=== PATIENT | female | born 1980 | race Two or more races ===

== ENCOUNTER 2018-10-19 13:35 | Emergency (ER) | payer MEDICAID ==
[~2018-10-19] VITALS: Ht 152.4 cm; Wt 62.1 kg
[2018-10-19] MEDS ORDERED: KETOROLAC TROMETH 30 MG/ML 1ML VIAL IV ONE (15:45)
[2018-10-19 16:12] LABS: Basophils # (auto) 0 uL; Basophils % (auto) 0.4 % (0.0-2.0); Eosinophils # (auto) 0.1 uL; Eosinophils % (auto) 0.7 % (0.0-7.0); Hematocrit 33.4 % (36.0-46.0); Hemoglobin 10.9 g/dL (12.2-16.2); Lymphocytes # (auto) 0.8 uL; Lymphocytes % (auto) 9.7 % (10.0-50.0); Mean Corpuscular Hemoglobin 28.2 pg (28.0-32.0); Mean Corpuscular Hgb Conc. 32.7 g/dL (32.0-36.0); Mean Corpuscular Volume 86.2 fL (80.0-100.0); Monocytes # (auto) 0.3 uL; Monocytes % (auto) 4.2 % (0.0-12.0); Neutrophils # (auto) 6.7 uL; Platelet Count (auto) 391 10^3/uL (140-450); Red Blood Cells 3.88 10^6/uL (4.0-5.20); Red Cell Distribution Width 14.5 % (11.8-14.3); White Blood Cell 7.9 10^3/uL (4.4-10.8)
[2018-10-19 16:23] LABS: Albumin 2.9 g/dL (3.4-5.0); BUN/Creatinine Ratio 25.9; Calcium 8.3 mg/dL (8.5-10.1); Potassium 3.7 mmol/L (3.5-5.1)
[2018-10-19 16:25] LABS: Bilirubin, Total 0.3 mg/dL (0.2-1.0); Total Protein 7.4 g/dL (6.4-8.2)
[2018-10-19 17:43] VITALS: BP 121/83
== END 2018-10-19 17:18 | disposition home or self-care (01) ==
LOC: EDUNIT# 13:35 → EDBD 13:35 → ER 13:44
DX: O9A.23 Injury, poisoning and certain other consequences of external causes complicating the puerperium (principal); S39.91XA Unspecified injury of abdomen, initial encounter; V49.49XA Driver injured in collision with other motor vehicles in traffic accident, initial encounter; Y93.89 Activity, other specified; Y99.8 Other external cause status; Y92.89 Other specified places as the place of occurrence of the external cause
CPT/HCPCS: 36415; 74176; 80053; 85025; 96374; 99284; J1885

== ENCOUNTER 2019-06-02 12:43 | Emergency (ER) | payer MEDICAID ==
[~2019-06-02] VITALS: Ht 152.4 cm; Wt 59.0 kg
[2019-06-02 13:13] VITALS: BP 135/50
[2019-06-02] MEDS ORDERED: TETANUS-DIPTH-ACEL PERTUSSIS 0.5ML SYRG IM ONE (15:15)
== END 2019-06-02 15:36 | disposition home or self-care (01) ==
LOC: ER 12:43
DX: S61.411A Laceration without foreign body of right hand, initial encounter (principal); W25.XXXA Contact with sharp glass, initial encounter; Y93.89 Activity, other specified; Y92.89 Other specified places as the place of occurrence of the external cause; Y99.8 Other external cause status
CPT/HCPCS: 12002; 90471; 90715

== ENCOUNTER 2025-02-11 23:04 | Inpatient (IN) | payer MEDICAID ==
[~2025-02-11] VITALS: Ht 149.9 cm; Wt 56.8 kg
[2025-02-11] MEDS: SODIUM CHLORIDE 0.9% 1,000 ML IV ONE (23:15)
[2025-02-11 23:30] VITALS: PULSE 61; RESP 10; O2SAT 98
--- NOTE | 2025-02-11 23:31 | ED.PDOC ---
History of Present Illness HPI Comments 44-year-old [place]-speaking female is brought in by ambulance from private residence status post witnessed syncope event. Per EMS report, daughter called after patient had a sudden syncopal event, while in the seated position, putting on shoes. No head or additional injuries reported. Upon arrival on scene, as noted on patient already being put N/A reclined position with a pillow beneath her head. Daughter stated on patient working the entire day, today, and complaining of chest pain at around 4:00 p.m., this evening. Vitals were noted to have been stable within normal limits. Initial blood glucose of 96. Patient was given 4 mg of Zofran IV EN route seeing nausea symptom. At time of assessment, patient endorses on feeling thirsty and having 8/10, left-sided chest wall pressure. Reports having similar episode of chest pain without syncope 2 weeks ago. Patient denies having any significant medical history. She denies having any is breath, palpitations, nausea, vomiting, or further associated symptoms. Chief Complaint: Chest Pain Time Seen by MD: 23:20 Primary Care Provider: VIKI MASSEY Reviewed Notes: Nurses Notes, Business Support Manager Notes, Medications, Allergies Allergies: Coded Allergies: NO KNOWN ALLERGIES (Unverified , 04/11/16) Information Source: Patient, Emergency Med Personnel Mode of Arrival: EMS Severity: Moderate Timing: Hours Duration: Since onset Prehospital treatment: 12 Lead EKG, Radiologist Diagnostic, Treatment (IV Zofran) Review of Systems: REVIEW OF SYSTEMS: General: No fever, no chills, or fatigue HEENT: No sore throat, no earache, no congestion, no neck pain. Cardiac: Syncope, chest pain. No palpitations. Lungs: No shortness of breath, no cough. GI: No nausea, no vomiting, no diarrhea, no constipation, no abdominal pain : No dysuria, frequency, or urgency. No hematuria. Musculoskeletal: No joint pain , no joint swelling, no extremity edema. Skin: No rash, no itching. Neuro: No headache, no dizziness, no weakness Vital Signs Vital Signs Date Time Temp Pulse Resp B/P (MAP) Pulse Ox O2 Delivery O2 Flow Rate FiO2 02/12/25 00:18 77 21 109/62 02/11/25 23:50 97.8 16 97.8 02/11/25 23:30 Room Air* 0 21 Physical Exam PHYSICAL EXAM: General: Awake, alert and oriented. No acute distress. Skin: Skin in warm, dry and intact. Appropriate color for ethnicity. HEENT: The head is normocephalic and atraumatic. Conjunctivae are clear without exudates or hemorrhage. Sclera is non-icteric. EOM are intact. No signs of nystagmus. Eyelids are normal in appearance without swelling or lesions. Oral mucosa is pink and moist Neck: The neck is supple with normal range of motion. No JVD. Cardiac: Left chest wall tenderness that is reproducible upon palpation. Heart rate and rhythm are normal. No murmurs, gallops, or rubs are auscultated. Respiratory: No signs of respiratory distress. Lung sounds are clear in all lobes bilaterally without rales, rhonchi, or wheezes. Abdominal: Abdomen is soft, non-tender without distention, guarding or rigidity. Bowel sounds are present and normoactive in all four quadrants. Extremities: Upper and lower extremities are atraumatic in appearance without deformity or edema. Neurological: The patient is awake, alert and oriented to person, place, and time with normal speech. Speech is clear. There is no facial asymmetry. Psychiatric: Appropriate mood and affect. Good judgement and insight. Past Medical History PAST MEDICAL HISTORY: Denies Surgical History: SENIOR PRODUCT MANAGER History: No Pertinent SENIOR PRODUCT MANAGER History Family History Family History: No family hx of DM, No family hx of HTN Social History Smoker: Non-Smoker Alcohol: Rarely Drugs: Denies Drug Use Lives In: Home Was a procedure done? Was a procedure done?: No EKG EKG : Pulse Rate (adult): 67 [place]: Normal Cardiac Rhythm: NSR Block: None Hypertrophy: None ST: Normal Comments No STEMI Differential Dx Considerations may include: Differential diagnoses considered include but are not limited to cardiac structural disease, arrhythmia, acute coronary syndrome, orthostasis, pulmonary embolism, dissection, seizure, basilar stroke, acute ischemic coronary syndrome, aortic dissection, cardiac tamponade, mediastinitis, pulmonary embolus, pneumothorax, tension pneumothorax, esophageal rupture, coronary artery vasospasm, myocarditis, pericarditis, pneumonia, pulmonary edema, esophageal tear, pancreatitis, aortic stenosis, dilated cardiomyopathy, hypertrophic cardiomyopathy, mitral valve prolapse, malignancy, pleuritis, pneumomediastinum, primary pulmonary hypertension, cholecystitis, esophageal spasm, esophagus, gastritis, GERD, peptic ulcer disease, costochondritis, fibromyalgia, rib fracture, herpes zoster, radicular syndromes, thoracic outlet syndrome, somatization. X-Ray, Labs, Meds, VS Vital Signs Date Time Temp Pulse Resp B/P (MAP) Pulse Ox O2 Delivery O2 Flow Rate FiO2 02/12/25 00:18 77 21 109/62 02/11/25 23:54 55 02/11/25 23:50 97.8 77 98 143/82 (102) 16 97.8 02/11/25 23:48 70 14 107/52 02/11/25 23:31 67 02/11/25 23:30 61 10 98 Room Air* 0 21 02/11/25 23:17 98.6 64 18 119/71 (87) 98 98.6 02/11/25 23:10 67 Lab Test 02/12/25 00:23 02/11/25 23:20 02/11/25 03:05 Range/Units Magnesium Level 1.8 1.6-2.6 mg/dL Total Bilirubin 0.5 0.2-1.0 mg/dL Direct Bilirubin 0.2 <0.3 mg/dL Aspartate Amino Transferase (AST) 13 13-40 U/L Alanine Aminotransferase (ALT) 12 7-40 U/L Alkaline Phosphatase 46 46-116 U/L Troponin I High Sensitivity < 3 L < 3 L </=34 ng/L Total Protein 5.7 5.7-8.2 g/dL Albumin 3.7 3.2-4.8 g/dL Thyroid Stimulating Hormone (TSH) 2.97 0.55-4.78 uIU/mL Beta HCG, Quantitative 0.7 L 1.5-4.2 mIU/mL White Blood Count 5.4 4.4-10.8 10^3/uL Red Blood Count 3.89 L 4.0-5.20 10^6/uL Hemoglobin 11.5 L 12.2-16.2 g/dL Hematocrit 33.2 L 36.0-46.0 % Mean Corpuscular Volume 85.3 80.0-100.0 fL Mean Corpuscular Hemoglobin 29.5 28.0-32.0 pg Mean Corpuscular Hemoglobin Concent 34.5 32.0-36.0 g/dL Red Cell Distribution Width 13.5 11.8-14.3 % Platelet Count 248 140-450 10^3/uL Mean Platelet Volume 7.6 6.9-10.8 fL Neutrophils (%) (Auto) 70.5 37.0-80.0 % Lymphocytes (%) (Auto) 21.3 10.0-50.0 % Monocytes (%) (Auto) 7.1 0.0-12.0 % Eosinophils (%) (Auto) 0.4 0.0-7.0 % Basophils (%) (Auto) 0.7 0.0-2.0 % Neutrophils # (Auto) 3.8 1.6-8.6 10 ^3/uL Lymphocytes # (Auto) 1.2 0.4-5.4 10 ^3/uL Monocytes # (Auto) 0.4 0-1.3 10 ^3/uL Eosinophils # (Auto) 0 0-0.8 10 ^3/uL Basophils # (Auto) 0 0-0.2 10 ^3/uL Nucleated Red Blood Cells 0.0 % Sodium Level 142 136-145 mmol/L Potassium Level 3.1 L 3.5-5.1 mmol/L Chloride Level 111 H 98-107 mmol/L Carbon Dioxide Level 21 20-31 mmol/L Anion Gap 10 5-15 Blood Urea Nitrogen < 5 L 9-23 mg/dL Creatinine 0.54 L 0.550-1.02 mg/dL Glomerular Filtration Rate Calc 118 >90 mL/min BUN/Creatinine Ratio 9.3 L 10.0-20.0 Serum Glucose 97 74-106 mg/dL Calcium Level 8.7 8.7-10.4 mg/dL B-Type Natriuretic Peptide 54.68 0-100 pg/mL Urine Test Negative Negative Urine Opiates Screen Neg NEGATIVE Urine Fentanyl Screen Neg NEGATIVE Urine Barbiturates Screen Neg NEGATIVE Urine Phencyclidine Screen Neg NEGATIVE Urine Amphetamines Screen Neg NEGATIVE Urine Benzodiazepines Screen Neg NEGATIVE Urine Cocaine Screen Neg NEGATIVE Urine Cannabinoids Screen Neg NEGATIVE Current Medications Medications (Trade) Dose Ordered Sig/Giles Route Start Time Stop Time Status Last Admin Sodium Chloride 1,000 ml @ 1,000 mls/hr Q1H ONCE IV 02/11/25 23:15 02/12/25 00:14 DC 02/11/25 23:15 Aspirin 324 mg ONCE ONCE PO 02/11/25 23:30 02/11/25 23:31 DC 02/11/25 23:49 Morphine Sulfate 2 mg ONCE ONCE IV 02/11/25 23:30 02/11/25 23:31 DC 02/11/25 23:48 Ondansetron HCl (Zofran) 4 mg ONCE ONCE IV 02/11/25 23:30 02/11/25 23:31 DC 02/11/25 23:49 Time of 1ST Reevaluation: 23:50 Reevaluation 1ST: Unchanged Patient Education/Counseling: Need For Follow Up Family Education/Counseling: No Family Present SEPSIS Sepsis Screen Physician Orders Electrocardigram (02/11/25 23:11) Radiologist Diagnostic (02/11/25 ) Orthostatic Vital Signs (02/11/25 ) Saline Lock (02/11/25 23:11) Fall Precautions Initiated (02/11/25 23:11) Electrocardigram (02/12/25 00:11) Electrocardigram (02/12/25 02:11) Urinalysis (02/11/25 23:17) Chest Xray 1 View (02/12/25 00:21) Vital Signs Date Time Temp Pulse Resp B/P (MAP) Pulse Ox O2 Delivery O2 Flow Rate FiO2 02/12/25 00:18 77 21 109/62 02/11/25 23:54 55 02/11/25 23:50 97.8 77 98 143/82 (102) 16 97.8 02/11/25 23:48 70 14 107/52 02/11/25 23:31 67 02/11/25 23:30 61 10 98 Room Air* 0 21 02/11/25 23:17 98.6 64 18 119/71 (87) 98 98.6 02/11/25 23:10 67 Laboratory Tests Test 02/11/25 23:20 White Blood Count 5.4 10^3/uL (4.4-10.8) Medications Medications Dose Ordered Sig/Giles Route Start Time Stop Time Status Last Admin Dose Admin Aspirin 324 mg ONCE ONCE PO 02/11/25 23:30 02/11/25 23:31 DC 02/11/25 23:49 Morphine Sulfate 2 mg ONCE ONCE IV 02/11/25 23:30 02/11/25 23:31 DC 02/11/25 23:48 Ondansetron HCl 4 mg ONCE ONCE IV 02/11/25 23:30 02/11/25 23:31 DC 02/11/25 23:49 Sodium Chloride 1,000 ml @ 1,000 mls/hr Q1H ONCE IV 02/11/25 23:15 02/12/25 00:14 DC 02/11/25 23:15 Departure 1 Departure Time of Disposition: 00:52 Impression: Primary Impression: Syncope Additional Impression: Chest pain Disposition: ADMITTED INPATIENT Condition: Stable Comments 44-year-old female with syncopal episode and chest pain Patient admitted to hospitalist service for further treatment, evaluation and monitoring. Extensive evaluation was performed in attempt to identify or rule out: (See differential diagnosis section) The following tests were ordered, and results were reviewed by me and discussed with patient: (See diagnostic results section) The following test were independently interpreted by me: EKG I reviewed and agreed with the following test results read by other providers: Chest x-ray I reviewed the following notes from the pt's past medical encounters: April, December 19, 2018, June 022018 encounters for gastritis, abdominal pain, laceration right hand, respectively Additional information was gathered from interviewing the following independent historians: EMS personnel Discussion of management or test interpretation with external physician/other qualified health care aid: N/A Decision regarding hospitalization or escalation of hospital level of care: Risk and benefits of admission for further treatment of patient's condition was considered. Due to patient's current clinical condition, high risk of decline and poor outcome if discharged and need for further inpatient management and monitoring, patient will be admitted to the hospital. Drug therapy requiring intensive monitoring for toxicity: N/A Parenteral controlled substances: IV morphine Decision regarding elective major surgery with identified patient or procedure risk factors: N/A Decision regarding emergency major surgery: N/A Decision not to resuscitate or to de-escalate care because of poor prognosis: N/A Diagnosis or treatment significantly limited by social determinants of health: N/A Critical Care Note Critical Care Time?: No Stability Stability form required: No Heart Score Heart Score: Heart Score Response (Comments) Value History Moderate Suspicious 1 EKG Normal 0 Age <45 0 Risk Factors No known risk factors 0 Troponin Normal limit 0 Total 1 I personally scribed for MINTAH,CHAILLE A MD ([email or web address]) on 02/11/25 at 23:31. Electronically submitted by Brayden Conrad ([email or web address]). CLAUDY MEHTA MD Feb 11, 2025 23:31
[2025-02-11 23:33] LABS: Hematocrit 33.2 % (36.0-46.0); Hemoglobin 11.5 g/dL (12.2-16.2); Mean Corpuscular Hemoglobin 29.5 pg (28.0-32.0); Mean Corpuscular Volume 85.3 fL (80.0-100.0); Nucleated Red Blood Cells % 0.0 %
[2025-02-11 23:45] LABS: Sodium 142 mmol/L (136-145)
[2025-02-11 23:46] LABS: Anion Gap 10 (5-15); Carbon Dioxide 21 mmol/L (20-31)
[2025-02-11] MEDS: MORPHINE SULFATE INJ 2 MG/ml SYRG IV ONE (23:48)
[2025-02-11] MEDS: ONDANSETRON HCL 4 MG/2 ML VIAL IV ONE (23:49)
[2025-02-11 23:51] LABS: Glucose 97 mg/dL (74-106)
[2025-02-12 00:03] LABS: BUN/Creatinine Ratio 9.3 (10.0-20.0); Blood Urea Nitrogen < 5 mg/dL (9-23); Calcium 8.7 mg/dL (8.7-10.4); Chloride 111 mmol/L (98-107); Potassium 3.1 mmol/L (3.5-5.1)
--- NOTE | 2025-02-12 00:59 | DVH ---
CHEST RADIOGRAPH Indication: CP/ syncope Technique: Single frontal view of the chest was obtained COMPARISON: None FINDINGS: Lines and Tubes: None Lungs: Clear Pleura: No effusion. No pneumothorax. Cardiomediastinal contours: Unremarkable Bones: Unremarkable IMPRESSION: 1. No acute disease.
--- NOTE | 2025-02-12 01:41 | DVHHP2 ---
History of Present Illness History of Present Illness Patient is 44 years old female with no significant past medical history was brought in by EMS after status post witnessed syncope. As per patient she was sitting on a chair to put on her shoes and she suddenly passed out at home. Before syncope patient had some nausea and pressure-like chest pain. As per patient before she passed out she was feeling nausea, dizziness and pressure- like chest pain, in the left side, sudden onset, 8/10, intermittent, no aggravating or relieving factor. Chest pain was associated with shortness of breaths. Per EMS record at the scene patient's blood sugar was 96, patient's vitals were stable. Patient reported she had similar dizziness 2 weeks before but did not pass out. Patient denied any fever, diarrhea, vomiting, dysuria, acute joint redness or swelling, change in vision. Initial lab workup is negative for troponin I, BNP within normal limit, potassium 3.1. chest x-ray no acute cardiopulmonary abnormality noted. EKG sinus bradycardia. Past Medical History None Past Surgical History x3, umbilical hernia repair Family History Mom has hypertension, diabetes mellitus Past Social History Denies smoking/alcoholism/drug abuse, lives with 3 kids Review of Systems Review of Systems Allergy- NKDA Patient was seen today at the bedside. Cardiovascular- deny acute chest pain or cough or palpitation Respiratory denies cough or short of breath or wheezing Gastrointestinal- denies any rectal bleeding, nausea or vomiting Musculoskeletal-denies acute joint swelling or tenderness or redness Neurological- denies acute dysarthria, dysphagia, change in vision Psychiatry- denies depression or SI or HI Skin- denies acute rash or purpura Allergies: Coded Allergies: NO KNOWN ALLERGIES (Unverified , 04/11/16) Medications Current Medications Medications Dose Ordered Sig/Giles Route Start Time Stop Time Status Last Admin Dose Admin Sodium Chloride 1,000 ml @ 120 mls/hr Q8H20M IV 02/12/25 01:45 Exam Vital Signs Vital Signs Date Time Temp Pulse Resp B/P (MAP) Pulse Ox O2 Delivery O2 Flow Rate FiO2 02/12/25 00:18 77 21 109/62 02/11/25 23:17 98.6 98 98.6 Exam General examination- awake, alert, oriented HEENT- [place], no acute nasal discharge Cardiovascular- chest wall tenderness positive++, S1-S2 audible, rate and rhythm regular, no murmur Respiratory- CTAB, no wheeze or rhonchi Gastrointestinal-nontender, bowel sound+. Nondistended Musculoskeletal-no acute joint swelling or tenderness or redness Lower extremity- no leg edema Neurological- cranial nerves intact, no acute dysarthria or dysphagia Psychiatry- denies depression or SI or HI Skin- no acute rash or purpura Labs/Xrays Labs Test 02/12/25 00:23 02/11/25 23:20 Range/Units Troponin I High Sensitivity < 3 L </=34 ng/L White Blood Count 5.4 4.4-10.8 10^3/uL Red Blood Count 3.89 L 4.0-5.20 10^6/uL Hemoglobin 11.5 L 12.2-16.2 g/dL Hematocrit 33.2 L 36.0-46.0 % Mean Corpuscular Volume 85.3 80.0-100.0 fL Mean Corpuscular Hemoglobin 29.5 28.0-32.0 pg Mean Corpuscular Hemoglobin Concent 34.5 32.0-36.0 g/dL Red Cell Distribution Width 13.5 11.8-14.3 % Platelet Count 248 140-450 10^3/uL Mean Platelet Volume 7.6 6.9-10.8 fL Neutrophils (%) (Auto) 70.5 37.0-80.0 % Lymphocytes (%) (Auto) 21.3 10.0-50.0 % Monocytes (%) (Auto) 7.1 0.0-12.0 % Eosinophils (%) (Auto) 0.4 0.0-7.0 % Basophils (%) (Auto) 0.7 0.0-2.0 % Neutrophils # (Auto) 3.8 1.6-8.6 10 ^3/uL Lymphocytes # (Auto) 1.2 0.4-5.4 10 ^3/uL Monocytes # (Auto) 0.4 0-1.3 10 ^3/uL Eosinophils # (Auto) 0 0-0.8 10 ^3/uL Basophils # (Auto) 0 0-0.2 10 ^3/uL Nucleated Red Blood Cells 0.0 % Sodium Level 142 136-145 mmol/L Potassium Level 3.1 L 3.5-5.1 mmol/L Chloride Level 111 H 98-107 mmol/L Carbon Dioxide Level 21 20-31 mmol/L Anion Gap 10 5-15 Blood Urea Nitrogen < 5 L 9-23 mg/dL Creatinine 0.54 L 0.550-1.02 mg/dL Glomerular Filtration Rate Calc 118 >90 mL/min BUN/Creatinine Ratio 9.3 L 10.0-20.0 Serum Glucose 97 74-106 mg/dL Calcium Level 8.7 8.7-10.4 mg/dL B-Type Natriuretic Peptide 54.68 0-100 pg/mL SEPSIS Sepsis Screen Date sepsis recognized/suspect: Feb 11, 2025 Time Sepsis recognized/suspect: 2309 Recent Procedure: No On Antibiotic Therapy: No Respiratory Rate >20: No Heart Rate >90: No Temp<36 C (96.8 F) or >38.3 C: No SBP <90 or MAP <65 mmHG: No New Acute Mental Status Change: No Is the patient on CPAP, BIPAP,: No Physician Orders Electrocardigram (02/11/25 23:11) [place] (02/11/25 ) Orthostatic Vital Signs (02/11/25 ) Saline Lock (02/11/25 23:11) Fall Precautions Initiated (02/11/25 23:11) Electrocardigram (02/12/25 00:11) Electrocardigram (02/12/25 02:11) Troponin-I Hs (02/12/25 02:11) Urinalysis (02/11/25 23:17) Test, Urine (02/11/25 23:17) Chest Xray 1 View (02/12/25 00:21) Admit (02/12/25 01:34) Code Status (02/12/25 01:34) Sodium Chloride 0.9% (02/12/25 01:45) Comprehensive Metabolic Panel (02/13/25 04:00) Echo 2d Mode Cardiac Dop (02/12/25 01:34) Carotid Duplx W Color Dop (02/12/25 01:34) Notify Of Changes From Base (02/12/25 01:34) Addictions Counselor For 24 Hours (02/12/25 01:34) Thyroid Stimulating Hormone (02/12/25 01:36) Magnesium (02/12/25 01:36) Orthostatic Vital Signs (02/12/25 01:36) Hepatic Panel (02/12/25 01:37) Vital Signs Date Time Temp Pulse Resp B/P (MAP) Pulse Ox O2 Delivery O2 Flow Rate FiO2 02/12/25 00:18 77 21 109/62 02/11/25 23:54 55 02/11/25 23:48 70 14 107/52 02/11/25 23:31 67 02/11/25 23:17 98.6 64 18 119/71 (87) 98 98.6 02/11/25 23:10 67 Laboratory Tests Test 02/11/25 23:20 White Blood Count 5.4 10^3/uL (4.4-10.8) Medications Medications Dose Ordered Sig/Giles Route Start Time Stop Time Status Last Admin Dose Admin Aspirin 324 mg ONCE ONCE PO 02/11/25 23:30 02/11/25 23:31 DC 02/11/25 23:49 324 MG Morphine Sulfate 2 mg ONCE ONCE IV 02/11/25 23:30 02/11/25 23:31 DC 02/11/25 23:48 2 MG Ondansetron HCl 4 mg ONCE ONCE IV 02/11/25 23:30 02/11/25 23:31 DC 02/11/25 23:49 4 MG Sodium Chloride 1,000 ml @ 1,000 mls/hr Q1H ONCE IV 02/11/25 23:15 02/12/25 00:14 DC 02/11/25 23:15 1,000 MLS/HR Assessment/Plan Assessment/Plan Assessment and plan #Syncope, rule out cardiac arrhythmia/orthostatic hypotension/BPPV/dehydration -EKG sinus bradycardia -troponin I, BNP within normal limit -pending echo 2D -pending carotid Doppler -Ordered orthostatic vitals -pending CT head without contrast -continue current conservative management # acute chest pain, likely acute costochondritis, rule out acute coronary syndrome -troponin I within normal limit -EKG sinus bradycardia -pending echo 2D -Tylenol PRN Diet- Regular diet PCP-Breanna Young Goals of care, Code status ; discussed with >15 minutes PUD prophylaxis: Pantoprazole DVT prophylaxis: Lovenox Plan discussed with Dr. Sibley , nursing staff, Total time spent on patient evaluation, chart review, assessment and plan, discussion discussion >35 minutes Plan discussed with: Patient, Other My Orders Orders - BAIRON FOURNIER RESIDENT Procedure Category Date Status Time Admit ADMIT 02/12/25 Transmitted 01:34 Code Status CODE 02/12/25 Transmitted 01:34 Sodium Chloride 0.9% PHA 02/12/25 In Process 01:45 Comprehensive LAB 02/13/25 Verified Metabolic Panel 04:00 Echo 2d Mode Cardiac US 02/12/25 Logged DOP 01:34 Carotid Duplx W Color US 02/12/25 Logged DOP 01:34 Notify Of Changes JERE 02/12/25 In Process From Base 01:34 Addictions Counselor For JERE 02/12/25 In Process 24 Hours 01:34 Thyroid Stimulating LAB 02/12/25 Logged Hormone 01:36 Magnesium LAB 02/12/25 Logged 01:36 Orthostatic Vital ORDERS 02/12/25 Transmitted Signs 01:36 Hepatic Panel LAB 02/12/25 Logged 01:37 Date of Service: Feb 12, 2025 Billing Provider: BELEN SIBLEY MD Common Visit Codes: 55579-PBHNUVS INP/OBS CARE (HIGH) Secondary Visit Codes: 78565-[id number] CARE PLAN 30 MINUTES BAIRON FOURNIER RESIDENT Feb 12, 2025 01:41
[2025-02-12] MEDS: SODIUM CHLORIDE 0.9% 1,000 ML IV SCH (01:45)
[2025-02-12 02:10] LABS: Alanine Aminotransferase 12.0 U/L (7-40); Albumin 3.7 g/dL (3.2-4.8); Bilirubin, Direct 0.2 mg/dL (<0.3); Bilirubin, Total 0.5 mg/dL (0.2-1.0); Magnesium 1.8 mg/dL (1.6-2.6)
[2025-02-12 02:21] LABS: Alkaline Phosphatase 46.0 U/L (46-116); Total Protein 5.7 g/dL (5.7-8.2)
[2025-02-12] MEDS: ACETAMINOPHEN 325 MG TAB PO ONE (02:45)
[2025-02-12] MEDS ORDERED: ACETAMINOPHEN 650 mg PER 20.3 mL UD PO ONE (02:45)
[2025-02-12] MEDS: POTASSIUM EFFERVESENT TAB 25 MEQ GT ONE (02:45)
[2025-02-12] MEDS: SODIUM CHLORIDE 0.9% 1,000 ML IV ONE (02:58)
[2025-02-12 03:51] LABS: Opiate Scree,Urine Neg (NEGATIVE)
[2025-02-12 03:55] LABS: Amphetamine Screen, Urine Neg (NEGATIVE); Barbiturate Scree,Urine Neg (NEGATIVE); Benzodiazephine Screen, Urine Neg (NEGATIVE); Cannabinoid Screen, Urine Neg (NEGATIVE); Cocaine Screen, Urine Neg (NEGATIVE); Phencyclidine Screen, Urine Neg (NEGATIVE)
[2025-02-12] MEDS ORDERED: NITROGLYCERIN 0.4 MG SL TAB SL PRN (06:45)
[2025-02-12] MEDS: MORPHINE SULFATE INJ 2 MG/ml SYRG ONE (07:12)
[2025-02-12 07:40] VITALS: PULSE 92; RESP 12; O2SAT 95
--- NOTE | 2025-02-12 08:33 | DVH ---
CLINICAL INFORMATION: Syncope. TECHNIQUE: Axial imaging was obtained through the brain without contrast. Coronal and sagittal reform atted images were obtained, reviewed, and stored. Images were reviewed in brain and bone windows. Al l CT scans at this medical facility are performed using dose modulation techniques as appropriate to a performed exam including the following: Automated exposure control was utilized; adjustment of the MA and/or KV according to patient size; and use of iterative reconstruction technique. CTDIvol = 53.1 9 mGy DLP = 941.96 mGy-cm COMPARISON: None FINDINGS: There is no acute intracranial hemorrhage. No mass effect or midline shift. The ventricles and sulci are within normal limits in size for age. Basal cisterns are patent. The calvarium is unre markable. Paranasal sinuses and mastoid air cells are clear. IMPRESSION: No CT evidence of acute intracranial abnormality.
--- NOTE | 2025-02-12 08:49 | ECG ---
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
--- NOTE | 2025-02-12 08:49 | ECG ---
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
--- NOTE | 2025-02-12 08:50 | ECG ---
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
--- NOTE | 2025-02-12 09:14 | DVH ---
Carotid Duplex Clinical History: SYNCOPE Comparison: None Technique: Duplex Doppler evaluation of the extracranial carotid and vertebral arteries including color Doppler and spectral/pulsed waveform analysis was performed. Findings: RIGHT SIDE: The peak systolic velocities are 66 cm/s in the CCA, 97 cm/s in the ICA. The ICA/CCA ratio is 1.5. The external carotid artery is patent with peak systolic velocity of 71 cm/s proximally. There is appropriate antegrade flow in the right vertebral artery. LEFT SIDE: The peak systolic velocities are 89 cm/s in the CCA, 111 cm/s in the ICA. The ICA/CCA ratio is 1.2. The external carotid artery is patent with peak systolic velocity of 68 cm/s proximally. There is appropriate antegrade flow in the left vertebral artery. IMPRESSION: No hemodynamically significant stenosis noted in the right carotid system. No hemodynamically significant stenosis noted in the left carotid system. Reference: Radiology 2003; 229:340-346 Normal ICA PSV is <125 cm/sec and no plaque or intimal thickening is visible sonographically addition al criteria include ICA/CCA PSV ratio <2.0 and ICA EDV <40 cm/sec <50% ICA stenosis ICA PSV is <125 cm/sec and plaque or intimal thickening is visible sonographically additional criteria include ICA/CCA PSV ratio <2.0 and ICA EDV <40 cm/sec 50-69% ICA stenosis ICA PSV is 125-230 cm/sec and plaque is visible sonographically additional criter ia include ICA/CCA PSV ratio of 2.0-4.0 and ICA EDV of 40-100 cm/sec 70% ICA stenosis but less than near occlusion ICA PSV is >230 cm/sec and visible plaque and luminal narrowing are seen at atkins-scale and color Doppler ultrasound (the higher the Doppler parameters lie above the threshold of 230 cm/sec, the greater the likelihood of severe disease) additional criteria include ICA/CCA PSV ratio >4 and ICA EDV >100 cm/sec
[2025-02-12 10:07] LABS: Urine Protein, UAD Negative (Negative)
[2025-02-12 14:48] VITALS: BP 106/67; PULSE 59; RESP 16; TEMP 98.4; O2SAT 98
[2025-02-12] MEDS: MORPHINE SULFATE INJ 2 MG/ml SYRG IV PRN ×2 (17:32→22:35)
[2025-02-12 20:00] VITALS: PULSE 63; RESP 17; O2SAT 96
[2025-02-12 21:00] VITALS: BP 106/65; PULSE 60; RESP 16; TEMP 98.3; O2SAT 96
[2025-02-13] VITALS (7 sets, daily range): BP systolic 104–125; BP diastolic 52–76; PULSE 51–84; RESP 17–20; TEMP 98.4–99.5; O2SAT 95–100
--- NOTE | 2025-02-13 00:45 | DVHSR ---
APPROVED REPORT EXAM: Two-dimensional and M-mode echocardiogram with Doppler and color Doppler. Blood Pressure: 125/41 mmHg INDICATION rule out valvular disease or chf RISK FACTORS Height: 5'0, Weight: 123 DIMENSIONS LVDd4.5 (3.8-5.7cm)LA (2D)3.6 (1.9-4.0cm)Aortic Root3.0 (2.0-3.7cm) LVDs2.9 (2.5-4.0cm)LA (MM) (1.9-4.0cm)Aortic Cusp Exc1.7 (1.5-2.0cm) EF (%) 60.0 (55-70%)Rt. Atrium3.3 (1.9-4.0cm)Asc. Aorta cm IVSd0.7 (0.7-1.1cm)RV (D)3.0 (1.8-2.4cm) PWd0.6 (0.7-1.1cm) Mitral Valve MitralMitral Stenosis E wave1.02m/sMV Mean GR.mmHg A wave0.63m/sMV Peak GR.mmHg E/A ratio1.62D MVAcm2 DECEL [id number] 1/2 Timems Aortic Valve Aortic ValveAortic Stenosis V11.03m/Sameer Mean GR.4mmHg V21.40m/Sameer Peak GR.8mmHg LVOT Diameter1.9 (1.8-2.4cm)Doppler AVA2.08cm2 Tricuspid Valve TR Velocity2.10m/s [id number] Conclusion NORMAL LV EF AND IS 65% NORMAL VALVES MILD PULMONARY HYPERTENSION RVSP IS 40 MM OF HG AND IS HIGH NORMAL RV FUNCTION AND SIZE NO EFFUSION
[2025-02-13 06:03] LABS: Alanine Aminotransferase 18 U/L (7-40); Albumin 3.4 g/dL (3.2-4.8); Anion Gap 7 (5-15); BUN/Creatinine Ratio 9.8 (10.0-20.0); Carbon Dioxide 22 mmol/L (20-31); Glucose 104 mg/dL (74-106); Potassium 3.8 mmol/L (3.5-5.1); Sodium 141 mmol/L (136-145)
[2025-02-13 06:06] LABS: Alkaline Phosphatase 43 U/L (46-116); Bilirubin, Total 0.2 mg/dL (0.2-1.0); Blood Urea Nitrogen 6 mg/dL (9-23); Calcium 8.1 mg/dL (8.7-10.4); Chloride 112 mmol/L (98-107); Total Protein 5.3 g/dL (5.7-8.2)
[2025-02-13] MEDS: IOHEXOL 350 MG/ML 100ML IJ ONE (11:37)
--- NOTE | 2025-02-13 12:55 | DVH ---
CTA Chest with intravenous contrast INDICATION: sob on exetion pe rule out COMPARISON: Chest radiograph dated 02/12/2025. TECHNIQUE: Multidetector spiral CTA of the chest was performed of the chest with 5.0 x 317.5 cc of in travenous contrast. PULMONARY ANGIOGRAPHY PROTOCOL was utilized using a bolus-tracking technique cent ered on the main pulmonary artery. Coronal and sagittal multiplanar and MIP reformats were performed. Radiation Dose : 1. Chest: CTDI volume is 17.76 mGy. Dose-length product is 8.88 mGy*cm The dose indicators for CT are the volume Computed Tomography (CT) Dose Index (CTDIvol) and the Dose Length Product (DLP), and are measured in units of mGy and mGy-cm, respectively. These indicators are not patient dose, but values generated from the CT scanner acquisition factors. The report includes radiation exposure data for exposures received during this examination. FINDINGS: Pulmonary artery: No central, lobar or proximal segmental pulmonary embolus. Lower neck: Unremarkable thyroid. Lungs: Bilateral interlobular septal thickening. Bilateral lower lobe opacities. Central airways: Patent. Pleura: No pneumothorax. Small bilateral pleural effusions. Heart/Vascular Structures: The heart is normal in size. No pericardial effusion. Thoracic aorta is no rmal in caliber. No aneurysm or dissection. Lymph Nodes: No mediastinal or hilar lymphadenopathy. Esophagus: Grossly unremarkable. Musculoskeletal: Unremarkable. Body wall: Unremarkable. Upper abdomen: Edema surrounding the gallbladder. There are gallstones. Mesenteric edema. IMPRESSION: 1. No evidence of pulmonary embolism. 2. Pulmonary edema. 3. Small bilateral pleural effusions. 4. Gallstones. Edema surrounding the gallbladder. Mesenteric edema. Although these findings could b e related to systemic process such as heart failure, acute cholecystitis is not excluded. Recommend right upper quadrant ultrasound for further evaluation.
[2025-02-13] MEDS ORDERED: FUROSEMIDE 20 MG/2 ML VIAL IV STA (17:12)
[2025-02-13] MEDS: DOCUSATE SOD 100 MG CAP PO PRN (18:01)
[2025-02-13] MEDS: FUROSEMIDE 20 MG/2 ML VIAL IV ONE (18:03)
--- NOTE | 2025-02-13 20:02 | DVHPN2 ---
Subjective still having some SOB on minimal exertion Reviewed: H&P, Labs Changes from previous H/P or p: No Changes Objective Vitals Vital Signs Date Time Temp Pulse Resp B/P (MAP) Pulse Ox O2 Delivery O2 Flow Rate FiO2 02/13/25 18:03 112/58 02/13/25 18:01 62 18 02/13/25 17:00 98.9 97 98.9 02/13/25 08:15 Nasal Cannula* 2 28 Intake/Output Intake and Output 02/13/25 07:00 Intake Total 710 ml Output Total 400 ml Balance 310 ml Intake Oral 350 ml IV Total 360 ml Output Urine Total 400 ml General Appearance: Alert, Oriented X3 HEENT: Atraumatic Lungs: Clear to auscultation Cardiovascular: Regular rate, Normal S1, Normal S2 Abdomen: Normal bowel sounds Medications Current Medications Medications Dose Ordered Sig/Giles Route Start Time Stop Time Status Last Admin Dose Admin Sodium Chloride 1,000 ml @ 120 mls/hr [id number] IV 02/12/25 01:45 02/13/25 10:00 120 MLS/HR Nitroglycerin 0.4 mg Q5MIN PRN SL 02/12/25 06:45 Morphine Sulfate 2 mg [id number] PRN IV 02/12/25 06:45 02/12/25 17:32 2 MG Morphine Sulfate 2 mg Q2HPRN PRN IV 02/12/25 17:00 02/13/25 17:17 2 MG Docusate Sodium 100 mg BIDPRN PRN PO 02/13/25 17:30 02/13/25 18:01 100 MG Furosemide 20 mg DAILY IV 02/14/25 10:00 Laboratory Results Laboratory Tests 02/11/25 23:20 02/13/25 05:08 Chemistry Test 02/13/25 05:08 Albumin 3.4 g/dL (3.2-4.8) Calcium Level 8.1 mg/dL (8.7-10.4) L Total Protein 5.3 g/dL (5.7-8.2) L LFT Test 02/13/25 05:08 Alanine Aminotransferase (ALT) 18 U/L (7-40) Alkaline Phosphatase 43 U/L (46-116) L Aspartate Amino Transferase (AST) 17 U/L (13-40) Total Bilirubin 0.2 mg/dL (0.2-1.0) HgA1c, TSH Test 02/13/25 05:08 Hemoglobin A1c 5.1 % A1C (<5.7) Urinalysis Test 02/11/25 03:05 02/12/25 09:50 Urine Test Negative (Negative) Urine Color Light-yellow (Yellow) Urine Clarity Clear (Clear) Urine pH 6.0 (5.0-9.0) Urine Specific [place] 1.018 (1.001-1.035) Urine Protein Negative (Negative) Urine Ketones Negative (Negative) Urine Blood 1+ /uL (Negative) H Urine Nitrite Negative (Negative) Urine Bilirubin Negative (Negative) Urine Urobilinogen Normal mg/dL (Negative) Urine Leukocyte Esterase Negative /uL (Negative) Urine RBC 5 /hpf (0 - 4) Urine Microscopic WBC 1 /HPF (0-5) Urine Squamous Epithelial Cells Few /hpf (<5) Urine Bacteria None seen /hpf (None Seen) Urine Mucus Few (None Seen) Urine Glucose Normal mg/dL (Normal) Assessment/Plan Assessment/Plan #Pre syncope CT head, carotid US and CT angio head unremarkable echo with normal EF #Dyspnea on minimal exertoin #Pulmonary edema CT angio with no PE but pulmonary edema IV lasix Plan discussed with: Patient My Orders Orders - FAISAL TERRAZAS MD Procedure Category Date Status Time Ct Angio Chest CT 02/13/25 Resulted Contrast 11:25 Docusate Sodium PHA 02/13/25 In Process Capsule (Colace 17:30 Furosemide Injection PHA 02/14/25 In Process (Lasix Injection) 10:00 Date of Service: Feb 13, 2025 Billing Provider: FAISAL TERRAZAS MD Common Visit Codes: [id number] INP/OBS CARE(HIGH) FAISAL TERRAZAS MD Feb 13, 2025 20:02
[2025-02-14] VITALS (8 sets, daily range): BP systolic 100–120; BP diastolic 60–89; PULSE 53–71; RESP 14–20; TEMP 98.3–98.9; O2SAT 98–100
[2025-02-14] MEDS: FUROSEMIDE 20 MG/2 ML VIAL IV SCH (09:24)
[2025-02-14] MEDS: SENNA 8.6 MG TAB PO ONE (12:27)
[2025-02-14] MEDS: SENNA 8.6 MG TAB PO SCH (21:03)
--- NOTE | 2025-02-14 23:29 | DVHPN2 ---
Subjective still having some SOB on minimal exertion Reviewed: H&P, Labs Changes from previous H/P or p: No Changes Objective Vitals Vital Signs Date Time Temp Pulse Resp B/P (MAP) Pulse Ox O2 Delivery O2 Flow Rate FiO2 02/14/25 21:34 67 18 110/69 02/14/25 21:00 98.3 100 98.3 02/14/25 20:00 Nasal Cannula* 2 28 Intake/Output Intake and Output 02/14/25 07:00 Intake Total 2750 ml Balance 2750 ml Intake Oral 750 ml IV Total 2000 ml # Voids 8 General Appearance: Alert, Oriented X3 HEENT: Atraumatic Lungs: Clear to auscultation Cardiovascular: Regular rate, Normal S1, Normal S2 Abdomen: Normal bowel sounds Medications Current Medications Medications Dose Ordered Sig/Giles Route Start Time Stop Time Status Last Admin Dose Admin Nitroglycerin 0.4 mg Q5MIN PRN SL 02/12/25 06:45 Morphine Sulfate 2 mg [id number] PRN IV 02/12/25 06:45 02/12/25 17:32 2 MG Morphine Sulfate 2 mg Q2HPRN PRN IV 02/12/25 17:00 02/14/25 21:04 2 MG Docusate Sodium 100 mg BIDPRN PRN PO 02/13/25 17:30 02/14/25 09:23 100 MG Furosemide 20 mg DAILY IV 02/14/25 10:00 02/14/25 09:24 20 MG Sennosides 8.6 mg HS PO 02/14/25 22:00 02/14/25 21:03 8.6 MG Laboratory Results Laboratory Tests 02/11/25 23:20 02/13/25 05:08 Urinalysis Test 02/11/25 03:05 02/12/25 09:50 Urine Test Negative (Negative) Urine Color Light-yellow (Yellow) Urine Clarity Clear (Clear) Urine pH 6.0 (5.0-9.0) Urine Specific [place] 1.018 (1.001-1.035) Urine Protein Negative (Negative) Urine Ketones Negative (Negative) Urine Blood 1+ /uL (Negative) H Urine Nitrite Negative (Negative) Urine Bilirubin Negative (Negative) Urine Urobilinogen Normal mg/dL (Negative) Urine Leukocyte Esterase Negative /uL (Negative) Urine RBC 5 /hpf (0 - 4) Urine Microscopic WBC 1 /HPF (0-5) Urine Squamous Epithelial Cells Few /hpf (<5) Urine Bacteria None seen /hpf (None Seen) Urine Mucus Few (None Seen) Urine Glucose Normal mg/dL (Normal) Assessment/Plan Assessment/Plan #Pre syncope CT head, carotid US and CT angio head unremarkable echo with normal EF #Dyspnea on minimal exertoin #Pulmonary edema CT angio with no PE but pulmonary edema IV lasix Plan discussed with: Patient My Orders Orders - FAISAL TERRAZAS MD Procedure Category Date Status Time Senna Pod Tablet PHA 02/14/25 In Process (Senokot Tablet) 22:00 Date of Service: Feb 14, 2025 Billing Provider: FAISAL TERRAZAS MD Common Visit Codes: [id number] INP/OBS CARE(HIGH) FAISAL TERRAZAS MD Feb 14, 2025 23:29
[2025-02-15] VITALS (8 sets, daily range): BP systolic 83–124; BP diastolic 49–79; PULSE 58–101; RESP 16–18; TEMP 98.5–99.4; O2SAT 93–100
[2025-02-15 05:56] LABS: Chloride 103 mmol/L (98-107); Potassium 4.0 mmol/L (3.5-5.1); Sodium 138 mmol/L (136-145)
[2025-02-15 05:57] LABS: Anion Gap 8 (5-15); Calcium 9.7 mg/dL (8.7-10.4); Carbon Dioxide 27 mmol/L (20-31)
[2025-02-15 06:02] LABS: BUN/Creatinine Ratio 16.2 (10.0-20.0); Blood Urea Nitrogen 11 mg/dL (9-23); Glucose 90 mg/dL (74-106)
[2025-02-15] MEDS: ONDANSETRON HCL 4 MG/2 ML VIAL IV PRN (14:34)
[2025-02-15] MEDS: LACTULOSE 20Gm/30ML SOLN PO ONE (14:35)
--- NOTE | 2025-02-15 18:37 | DVHPN2 ---
Subjective still having some SOB on minimal exertion Reviewed: H&P, Labs Changes from previous H/P or p: No Changes Objective Vitals Vital Signs Date Time Temp Pulse Resp B/P (MAP) Pulse Ox O2 Delivery O2 Flow Rate FiO2 02/15/25 17:00 98.8 59 16 105/68 (80) 100 98.8 02/14/25 20:00 Nasal Cannula* 2 28 Intake/Output Intake and Output 02/15/25 07:00 Intake Total 1850 ml Balance 1850 ml Intake Oral 1850 ml # Voids 7 General Appearance: Alert, Oriented X3 HEENT: Atraumatic Lungs: Clear to auscultation Cardiovascular: Regular rate, Normal S1, Normal S2 Abdomen: Normal bowel sounds Medications Current Medications Medications Dose Ordered Sig/Giles Route Start Time Stop Time Status Last Admin Dose Admin Nitroglycerin 0.4 mg Q5MIN PRN SL 02/12/25 06:45 Morphine Sulfate 2 mg [id number] PRN IV 02/12/25 06:45 02/12/25 17:32 2 MG Morphine Sulfate 2 mg Q2HPRN PRN IV 02/12/25 17:00 02/15/25 10:53 2 MG Docusate Sodium 100 mg BIDPRN PRN PO 02/13/25 17:30 02/15/25 10:35 100 MG Furosemide 20 mg DAILY IV 02/14/25 10:00 02/15/25 10:36 20 MG Sennosides 8.6 mg HS PO 02/14/25 22:00 02/14/25 21:03 8.6 MG Ondansetron HCl 4 mg Q4HPRN PRN IV 02/15/25 13:30 02/15/25 14:34 4 MG Laboratory Results Laboratory Tests 02/11/25 23:20 02/15/25 05:00 Chemistry Test 02/15/25 05:00 Calcium Level 9.7 mg/dL (8.7-10.4) Urinalysis Test 02/11/25 03:05 02/12/25 09:50 Urine Test Negative (Negative) Urine Color Light-yellow (Yellow) Urine Clarity Clear (Clear) Urine pH 6.0 (5.0-9.0) Urine Specific [place] 1.018 (1.001-1.035) Urine Protein Negative (Negative) Urine Ketones Negative (Negative) Urine Blood 1+ /uL (Negative) H Urine Nitrite Negative (Negative) Urine Bilirubin Negative (Negative) Urine Urobilinogen Normal mg/dL (Negative) Urine Leukocyte Esterase Negative /uL (Negative) Urine RBC 5 /hpf (0 - 4) Urine Microscopic WBC 1 /HPF (0-5) Urine Squamous Epithelial Cells Few /hpf (<5) Urine Bacteria None seen /hpf (None Seen) Urine Mucus Few (None Seen) Urine Glucose Normal mg/dL (Normal) Assessment/Plan Assessment/Plan #Pre syncope CT head, carotid US and CT angio head unremarkable echo with normal EF #Dyspnea on minimal exertoin #Pulmonary edema #Acute hypoxic respiratory failure CT angio with no PE but pulmonary edema IV lasix Consult cardiolog today due to angina? Plan discussed with: Patient My Orders Orders - FAISAL TERRAZAS MD Procedure Category Date Status Time Basic Metabolic Panel LAB 02/16/25 Verified 05:00 Basic Metabolic Panel LAB 02/17/25 Verified 05:00 Basic Metabolic Panel LAB 02/18/25 Verified 05:00 Basic Metabolic Panel LAB 02/19/25 Verified 05:00 Basic Metabolic Panel LAB 02/20/25 Verified 05:00 Basic Metabolic Panel LAB 02/21/25 Verified 05:00 Ondansetron Hcl PHA 02/15/25 In Process (Zofran) 13:30 * Cardiology Consult CONS 02/15/25 Transmitted 13:28 Date of Service: Feb 15, 2025 Billing Provider: FAISAL TERRAZAS MD Common Visit Codes: [id number] INP/OBS CARE(HIGH) FAISAL TERRAZAS MD Feb 15, 2025 18:37
[2025-02-16] VITALS (8 sets, daily range): BP systolic 92–105; BP diastolic 56–68; PULSE 57–91; RESP 17–20; TEMP 97.8–98.5; O2SAT 99–100
[2025-02-16 07:11] LABS: Anion Gap 8 (5-15); Calcium 9.8 mg/dL (8.7-10.4); Carbon Dioxide 28 mmol/L (20-31); Chloride 102 mmol/L (98-107); Potassium 3.9 mmol/L (3.5-5.1); Sodium 138 mmol/L (136-145)
[2025-02-16 07:17] LABS: BUN/Creatinine Ratio 17.3 (10.0-20.0); Blood Urea Nitrogen 14 mg/dL (9-23); Glucose 85 mg/dL (74-106)
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
[2025-02-16] MEDS: SODIUM CHLORIDE 0.9% 1,000 ML IV SCH (13:30)
--- NOTE | 2025-02-16 14:38 | DVH ---
Ultrasound gallbladder INDICATION: Gallstones Technique: 2-D real-time ultrasound was performed with axial and sagittal images submitted for evalu ation. FINDINGS: Liver normal in size without mass No gallstones or gallbladder wall thickening common bile duct normal in size. No biliary dilatation w ithin the liver IMPRESSION: 1. No evidence of gallstones, cholecystitis, or intrahepatic biliary dilatation
--- NOTE | 2025-02-16 15:51 | DVHPN2 ---
Subjective still having some SOB on minimal exertion Reviewed: H&P, Labs Changes from previous H/P or p: No Changes Objective Vitals Vital Signs Date Time Temp Pulse Resp B/P (MAP) Pulse Ox O2 Delivery O2 Flow Rate FiO2 02/16/25 13:00 98.5 69 20 100/64 (76) 99 98.5 02/16/25 08:30 Room Air* 0 21 Intake/Output Intake and Output 02/16/25 07:00 Intake Total 1540 ml Balance 1540 ml Intake Oral 1540 ml # Voids 6 General Appearance: Alert, Oriented X3 HEENT: Atraumatic Lungs: Clear to auscultation Cardiovascular: Regular rate, Normal S1, Normal S2 Abdomen: Normal bowel sounds Medications Current Medications Medications Dose Ordered Sig/Giles Route Start Time Stop Time Status Last Admin Dose Admin Nitroglycerin 0.4 mg Q5MIN PRN SL 02/12/25 06:45 Morphine Sulfate 2 mg [id number] PRN IV 02/12/25 06:45 02/15/25 20:15 2 MG Morphine Sulfate 2 mg Q2HPRN PRN IV 02/12/25 17:00 02/15/25 10:53 2 MG Docusate Sodium 100 mg BIDPRN PRN PO 02/13/25 17:30 02/15/25 20:07 100 MG Furosemide 20 mg DAILY IV 02/14/25 10:00 02/15/25 10:36 20 MG Sennosides 8.6 mg HS PO 02/14/25 22:00 02/15/25 20:07 8.6 MG Ondansetron HCl 4 mg Q4HPRN PRN IV 02/15/25 13:30 02/15/25 20:15 4 MG Sodium Chloride 1,000 ml @ 100 mls/hr Q10H IV 02/16/25 12:00 02/16/25 13:30 100 MLS/HR Laboratory Results Laboratory Tests 02/11/25 23:20 02/16/25 05:04 Chemistry Test 02/16/25 05:04 Calcium Level 9.8 mg/dL (8.7-10.4) Urinalysis Test 02/11/25 03:05 02/12/25 09:50 Urine Test Negative (Negative) Urine Color Light-yellow (Yellow) Urine Clarity Clear (Clear) Urine pH 6.0 (5.0-9.0) Urine Specific [place] 1.018 (1.001-1.035) Urine Protein Negative (Negative) Urine Ketones Negative (Negative) Urine Blood 1+ /uL (Negative) H Urine Nitrite Negative (Negative) Urine Bilirubin Negative (Negative) Urine Urobilinogen Normal mg/dL (Negative) Urine Leukocyte Esterase Negative /uL (Negative) Urine RBC 5 /hpf (0 - 4) Urine Microscopic WBC 1 /HPF (0-5) Urine Squamous Epithelial Cells Few /hpf (<5) Urine Bacteria None seen /hpf (None Seen) Urine Mucus Few (None Seen) Urine Glucose Normal mg/dL (Normal) Assessment/Plan Assessment/Plan #Pre syncope CT head, carotid US and CT angio head unremarkable echo with normal EF #Dyspnea on minimal exertoin #Pulmonary edema #Acute hypoxic respiratory failure CT angio with no PE but pulmonary edema IV lasix Consult cardiolog today due to angina? Plan discussed with: Patient My Orders Orders - FAISAL TERRAZAS MD Procedure Category Date Status Time Stat Ekg For Chest JERE 02/16/25 In Process Pain 10:31 Sodium Chloride 0.9% PHA 02/16/25 In Process 12:00 Troponin-I Hs LAB 02/16/25 In Process 14:55 Date of Service: Feb 16, 2025 Billing Provider: FAISAL TERRAZAS MD Common Visit Codes: [id number] INP/OBS CARE(HIGH) FAISAL TERRAZAS MD Feb 16, 2025 15:51
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
[2025-02-17] VITALS (9 sets, daily range): BP systolic 95–115; BP diastolic 41–77; PULSE 57–89; RESP 16–20; TEMP 98–99; O2SAT 99–100
[2025-02-17 07:08] LABS: Anion Gap 6 (5-15); Carbon Dioxide 26 mmol/L (20-31); Potassium 4.0 mmol/L (3.5-5.1); Sodium 141 mmol/L (136-145)
[2025-02-17 07:09] LABS: Calcium 9.3 mg/dL (8.7-10.4)
[2025-02-17 07:14] LABS: BUN/Creatinine Ratio 19.7 (10.0-20.0); Blood Urea Nitrogen 12 mg/dL (9-23); Glucose 86 mg/dL (74-106)
[2025-02-17 07:34] LABS: Chloride 109 mmol/L (98-107)
--- NOTE | 2025-02-17 15:44 | DVHPN2 ---
Subjective still having some SOB on minimal exertion Reviewed: H&P, Labs Changes from previous H/P or p: No Changes Objective Vitals Vital Signs Date Time Temp Pulse Resp B/P (MAP) Pulse Ox O2 Delivery O2 Flow Rate FiO2 02/17/25 12:34 98.8 78 20 97/61 (73) 100 98.8 02/17/25 07:41 Nasal Cannula* 2 28 Intake/Output Intake and Output 02/17/25 07:00 Intake Total 1120 ml Balance 1120 ml Intake Oral 1120 ml # Voids 4 General Appearance: Alert, Oriented X3 HEENT: Atraumatic Lungs: Clear to auscultation Cardiovascular: Regular rate, Normal S1, Normal S2 Abdomen: Normal bowel sounds Medications Current Medications Medications Dose Ordered Sig/Giles Route Start Time Stop Time Status Last Admin Dose Admin Nitroglycerin 0.4 mg Q5MIN PRN SL 02/12/25 06:45 Morphine Sulfate 2 mg [id number] PRN IV 02/12/25 06:45 02/15/25 20:15 2 MG Morphine Sulfate 2 mg Q2HPRN PRN IV 02/12/25 17:00 02/15/25 10:53 2 MG Docusate Sodium 100 mg BIDPRN PRN PO 02/13/25 17:30 02/15/25 20:07 100 MG Furosemide 20 mg DAILY IV 02/14/25 10:00 02/15/25 10:36 20 MG Sennosides 8.6 mg HS PO 02/14/25 22:00 02/16/25 21:04 8.6 MG Ondansetron HCl 4 mg Q4HPRN PRN IV 02/15/25 13:30 02/15/25 20:15 4 MG Sodium Chloride 1,000 ml @ 100 mls/hr Q10H IV 02/16/25 12:00 02/17/25 02:41 100 MLS/HR Laboratory Results Laboratory Tests 02/11/25 23:20 02/17/25 06:10 Chemistry Test 02/17/25 06:10 Calcium Level 9.3 mg/dL (8.7-10.4) Urinalysis Test 02/11/25 03:05 02/12/25 09:50 Urine Test Negative (Negative) Urine Color Light-yellow (Yellow) Urine Clarity Clear (Clear) Urine pH 6.0 (5.0-9.0) Urine Specific [place] 1.018 (1.001-1.035) Urine Protein Negative (Negative) Urine Ketones Negative (Negative) Urine Blood 1+ /uL (Negative) H Urine Nitrite Negative (Negative) Urine Bilirubin Negative (Negative) Urine Urobilinogen Normal mg/dL (Negative) Urine Leukocyte Esterase Negative /uL (Negative) Urine RBC 5 /hpf (0 - 4) Urine Microscopic WBC 1 /HPF (0-5) Urine Squamous Epithelial Cells Few /hpf (<5) Urine Bacteria None seen /hpf (None Seen) Urine Mucus Few (None Seen) Urine Glucose Normal mg/dL (Normal) Assessment/Plan Assessment/Plan #Pre syncope CT head, carotid US and CT angio head unremarkable echo with normal EF #Dyspnea on minimal exertoin #Pulmonary edema #Acute hypoxic respiratory failure CT angio with no PE but pulmonary edema IV lasix Cardiology recs most likely anxiety, no further workup plan to dc tomorrow Plan discussed with: Patient Date of Service: Feb 17, 2025 Billing Provider: FAISAL TERRAZAS MD Common Visit Codes: [id number] INP/OBS CARE(HIGH) FAISAL TERRAZAS MD Feb 17, 2025 15:44
--- NOTE | 2025-02-17 22:51 | DVHPN2 ---
Progress Note - Dictate Date Seen: Feb 17, 2025 Medical Necessity Reason Pt with a Central, PICC or Fol: No Subjective Patient was seen and evaluated in follow up. Patient is on 1 LPM NC. Patient is complaining of generalized pain. Gallbladder US is WNL. Telemetry reviewed. vital signs Vital Sign Date Time Temp Pulse Resp B/P (MAP) Pulse Ox O2 Delivery O2 Flow Rate FiO2 02/17/25 16:47 99.0 72 20 115/77 (90) 100 99.0 02/17/25 07:41 Nasal Cannula* 2 28 Total Intake and Output 02/16/25 02/16/25 02/17/25 15:00 23:00 07:00 Intake Total 620 ml 500 ml Balance 620 ml 500 ml medications Current Medications Medications Dose Ordered Sig/Giles Route Start Time Stop Time Status Last Admin Dose Admin Nitroglycerin 0.4 mg Q5MIN PRN SL 02/12/25 06:45 Morphine Sulfate 2 mg [id number] PRN IV 02/12/25 06:45 02/15/25 20:15 2 MG Morphine Sulfate 2 mg Q2HPRN PRN IV 02/12/25 17:00 02/15/25 10:53 2 MG Docusate Sodium 100 mg BIDPRN PRN PO 02/13/25 17:30 02/15/25 20:07 100 MG Furosemide 20 mg DAILY IV 02/14/25 10:00 02/15/25 10:36 20 MG Sennosides 8.6 mg HS PO 02/14/25 22:00 02/16/25 21:04 8.6 MG Ondansetron HCl 4 mg Q4HPRN PRN IV 02/15/25 13:30 02/15/25 20:15 4 MG Sodium Chloride 1,000 ml @ 100 mls/hr Q10H IV 02/16/25 12:00 02/17/25 02:41 100 MLS/HR objective GENERAL: Alert and oriented x 3. No acute distress. EYES: PERRL, EOMI. Anicteric. HENT: Moist mucous membranes. LUNGS: Clear to auscultation bilaterally. CARDIOVASCULAR: Regular rate and rhythm. ABDOMEN: Soft, nontender and nondistended. EXTREMITIES: No edema. NEUROLOGIC: No focal neurological deficits. SKIN: Warm, dry. laboratory and microbiology Laboratory Tests 02/17/25 06:10 02/11/25 23:20 Test 02/17/25 06:10 Range/Units Serum Glucose 86 74-106 mg/dL Problem List Noncardiac chest pain, likely anxiety and musculoskeletal. Pulmonary edema, non-cardiac. Sinus bradycardia. Rule out acute cholecystitis. Assessment/Plan Continued all current supportive medical care. Diuretics with Lasix. Morphine for pain management. Nitro SL. Additional plan as per the hospital course. Plan discussed with: Patient DAWSON SENIOR MD Feb 17, 2025 19:26
[2025-02-18] VITALS (7 sets, daily range): BP systolic 90–139; BP diastolic 49–72; PULSE 57–77; RESP 14–20; TEMP 36.9; O2SAT 98–100
--- NOTE | 2025-02-18 07:43 | ECG ---
[facility] Test Date: 2025-02-16 Test Time: 10:46:31 Pat Name: MARLENI LOO Department: Respiratoy Room: [address] [place] [address] 2 Gender: F Branch Assistant: : 1980 Requested By: CLAUDY MEHTA Order Number: [id number] Reading MD: Norm Finch Measurements Intervals [place] Rate: 74 P: 59 LA: 137 QRS: 29 QRSD: 76 T: 28 QT: 367 QTc: 408 Interpretive Statements Sinus rhythm Abnormal R-wave progression, early transition Borderline T wave abnormalities Electronically Signed On 02-18-2025 21:33:29 PDT by Norm Finch Please click the below link to view image of tracing.
[2025-02-18 10:05] LABS: Sodium 141 mmol/L (136-145)
[2025-02-18 10:06] LABS: Anion Gap 6 (5-15); Carbon Dioxide 26 mmol/L (20-31)
[2025-02-18 10:07] LABS: Calcium 8.9 mg/dL (8.7-10.4)
[2025-02-18 10:11] LABS: BUN/Creatinine Ratio 15.9 (10.0-20.0); Blood Urea Nitrogen 10 mg/dL (9-23)
[2025-02-18 10:12] LABS: Chloride 109 mmol/L (98-107); Glucose 171 mg/dL (74-106); Potassium 3.4 mmol/L (3.5-5.1)
[2025-02-18 14:33] LABS: Hematocrit 32.7 % (36.0-46.0); Hemoglobin 11.2 g/dL (12.2-16.2); Mean Corpuscular Hemoglobin 30.0 pg (28.0-32.0); Mean Corpuscular Volume 87.7 fL (80.0-100.0); Nucleated Red Blood Cells % 0.1 %
[2025-02-18 16:48] LABS: Hematocrit 35.1 % (36.0-46.0); Hemoglobin 12.1 g/dL (12.2-16.2); Mean Corpuscular Hemoglobin 29.7 pg (28.0-32.0); Mean Corpuscular Volume 86.2 fL (80.0-100.0); Nucleated Red Blood Cells % 0.0 %
--- NOTE | 2025-02-18 17:51 | DVHDS2 ---
Discharge Summary Date of Admission Feb 12, 2025 at 01:34 Date of Discharge: Feb 18, 2025 Labs/Diagnostic Data: Laboratory Results Test 02/18/25 16:36 02/18/25 09:17 02/16/25 15:36 02/13/25 05:08 White Blood Count 6.1 10^3/uL (4.4-10.8) Red Blood Count 4.07 10^6/uL (4.0-5.20) Hemoglobin 12.1 g/dL (12.2-16.2) Hematocrit 35.1 % (36.0-46.0) Mean Corpuscular Volume 86.2 fL (80.0-100.0) Mean Corpuscular Hemoglobin 29.7 pg (28.0-32.0) Mean Corpuscular Hemoglobin Concent 34.5 g/dL (32.0-36.0) Red Cell Distribution Width 13.9 % (11.8-14.3) Platelet Count 249 10^3/uL (140-450) Mean Platelet Volume 7.3 fL (6.9-10.8) Neutrophils (%) (Auto) 77.2 % (37.0-80.0) Lymphocytes (%) (Auto) 14.4 % (10.0-50.0) Monocytes (%) (Auto) 6.6 % (0.0-12.0) Eosinophils (%) (Auto) 1.2 % (0.0-7.0) Basophils (%) (Auto) 0.6 % (0.0-2.0) Neutrophils # (Auto) 4.7 10 ^3/uL (1.6-8.6) Lymphocytes # (Auto) 0.9 10 ^3/uL (0.4-5.4) Monocytes # (Auto) 0.4 10 ^3/uL (0-1.3) Eosinophils # (Auto) 0.1 10 ^3/uL (0-0.8) Basophils # (Auto) 0 10 ^3/uL (0-0.2) Nucleated Red Blood Cells 0.0 % Sodium Level 141 mmol/L (136-145) Potassium Level 3.4 mmol/L (3.5-5.1) Chloride Level 109 mmol/L (98-107) Carbon Dioxide Level 26 mmol/L (20-31) Anion Gap 6 (5-15) Blood Urea Nitrogen 10 mg/dL (9-23) Creatinine 0.63 mg/dL (0.550-1.02) Glomerular Filtration Rate Calc 114 mL/min (>90) BUN/Creatinine Ratio 15.9 (10.0-20.0) Serum Glucose 171 mg/dL (74-106) Calcium Level 8.9 mg/dL (8.7-10.4) Troponin I High Sensitivity < 3 ng/L (</=34) Hemoglobin A1c 5.1 % A1C (<5.7) Total Bilirubin 0.2 mg/dL (0.2-1.0) Aspartate Amino Transferase (AST) 17 U/L (13-40) Alanine Aminotransferase (ALT) 18 U/L (7-40) Alkaline Phosphatase 43 U/L (46-116) Total Protein 5.3 g/dL (5.7-8.2) Albumin 3.4 g/dL (3.2-4.8) Test 02/12/25 09:50 02/12/25 00:23 02/11/25 23:20 02/11/25 03:05 Urine Color Light-yellow (Yellow) Urine Clarity Clear (Clear) Urine pH 6.0 (5.0-9.0) Urine Specific [place] 1.018 (1.001-1.035) Urine Protein Negative (Negative) Urine Ketones Negative (Negative) Urine Blood 1+ /uL (Negative) Urine Nitrite Negative (Negative) Urine Bilirubin Negative (Negative) Urine Urobilinogen Normal mg/dL (Negative) Urine Leukocyte Esterase Negative /uL (Negative) Urine RBC 5 /hpf (0 - 4) Urine Microscopic WBC 1 /HPF (0-5) Urine Squamous Epithelial Cells Few /hpf (<5) Urine Bacteria None seen /hpf (None Seen) Urine Mucus Few (None Seen) Urine Glucose Normal mg/dL (Normal) Magnesium Level 1.8 mg/dL (1.6-2.6) Direct Bilirubin 0.2 mg/dL (<0.3) Thyroid Stimulating Hormone (TSH) 2.97 uIU/mL (0.55-4.78) Beta HCG, Quantitative 0.7 mIU/mL (1.5-4.2) B-Type Natriuretic Peptide 54.68 pg/mL (0-100) Urine Test Negative (Negative) Urine Opiates Screen Neg (NEGATIVE) Urine Fentanyl Screen Neg (NEGATIVE) Urine Barbiturates Screen Neg (NEGATIVE) Urine Phencyclidine Screen Neg (NEGATIVE) Urine Amphetamines Screen Neg (NEGATIVE) Urine Benzodiazepines Screen Neg (NEGATIVE) Urine Cocaine Screen Neg (NEGATIVE) Urine Cannabinoids Screen Neg (NEGATIVE) Other Laboratory Tests 02/18/25 16:36 02/18/25 09:17 Brief Hx & Hospital Course: Patient is 44 years old female with no significant past medical history was brought in by EMS after status post witnessed syncope. As per patient she was sitting on a chair to put on her shoes and she suddenly passed out at home. Before syncope patient had some nausea and pressure-like chest pain. As per patient before she passed out she was feeling nausea, dizziness and pressure- like chest pain, in the left side, sudden onset, 8/10, intermittent, no aggravating or relieving factor. Chest pain was associated with shortness of breaths. Per EMS record at the scene patient's blood sugar was 96, patient's vitals were stable. Patient reported she had similar dizziness 2 weeks before but did not pass out. Patient denied any fever, diarrhea, vomiting, dysuria, acute joint redness or swelling, change in vision. Initial lab workup is negative for troponin I, BNP within normal limit, potassium 3.1. chest x-ray no acute cardiopulmonary abnormality noted. EKG sinus bradycardia. During hospital stay Still having recurrent chest pain, all cardiac workup negative, had CT angio which showed pulmonary edema, started IV lasix and improved Chest pain most likely anxiety related Condition at Discharge: Good Final Diagnosis/Problems List Acute hypoxic respiratory failure pulmonary edema Chest pain due to anxiety Discharge Disposition: Home Discharge Instruct/Medications Diet: Regular Activity: No Restrictions, As Tolerated Follow Up/Referral: PCP in 7 days Medications: none Discharge Statement: "Patient was advised to return to the ER or call 911 if any headaches, dizziness, shortness of breath, chest pain, abdominal pain, bleeding, fevers, or worsening of medical condition. Patient was counseled about treatment plan, medications, possible side effects, patientverbalized understanding. All questions were answered to the best of my ability. This discharge took greater then 30 minutes in planning, reviewing documentation, counseling the patient, and discussing with other team members." ASSESSMENT ASSESSMENT Assessment Acute hypoxic respiratory failure pulmonary edema Chest pain due to anxiety Date of Service: Feb 18, 2025 Billing Provider: FAISAL TERRAZAS MD Common Visit Codes: [id number] DISCH DAY >30min FAISAL TERRAZAS MD Feb 18, 2025 17:51
--- NOTE | 2025-02-18 23:04 | DVHPN2 ---
Progress Note - Dictate Date Seen: Feb 18, 2025 Medical Necessity Reason Pt with a Central, PICC or Fol: No Subjective Patient was seen and evaluated in follow up. Patient is on 1 LPM NC. Patient denies any cardiac symptoms. Patient is cardiac stable for discharge. Telemetry reviewed. vital signs Vital Sign Date Time Temp Pulse Resp B/P (MAP) Pulse Ox O2 Delivery O2 Flow Rate FiO2 02/18/25 17:53 36.9 62 18 99 02/18/25 16:30 139/72 (94) 02/18/25 08:00 Nasal Cannula* 1 24 Total Intake and Output 02/17/25 02/17/25 02/18/25 15:00 23:00 07:00 Intake Total 340 ml 640 ml 800 ml Balance 340 ml 640 ml 800 ml objective GENERAL: Alert and oriented x 3. No acute distress. EYES: PERRL, EOMI. Anicteric. HENT: Moist mucous membranes. LUNGS: Clear to auscultation bilaterally. CARDIOVASCULAR: Regular rate and rhythm. ABDOMEN: Soft, nontender and nondistended. EXTREMITIES: No edema. NEUROLOGIC: No focal neurological deficits. SKIN: Warm, dry. laboratory and microbiology Laboratory Tests 02/18/25 16:36 02/18/25 09:17 Test 02/18/25 09:17 Range/Units Serum Glucose 171 H 74-106 mg/dL Problem List Noncardiac chest pain, likely anxiety and musculoskeletal. Pulmonary edema, non-cardiac. Sinus bradycardia. Rule out acute cholecystitis. Assessment/Plan Continued all current supportive medical care. Diuretics with Lasix. Morphine for pain management. Nitro SL. Additional plan as per the hospital course. Plan discussed with: Patient DAWSON SENIOR MD Feb 18, 2025 23:04
== END 2025-02-18 18:55 | disposition home or self-care (01) | DRG 204 ==
LOC: ER 23:04 → EDBD 23:04 → OVERFLOW 02-12 01:34 → TELE-EAST 02-12 14:40
PROVIDERS: ADMIT Hospitalist; ATTEND Hospitalist
DX: I95.1 Orthostatic hypotension (principal); J96.01 Acute respiratory failure with hypoxia; J81.1 Chronic pulmonary edema; F41.9 Anxiety disorder, unspecified; Z98.891 History of uterine scar from previous surgery; Z79.899 Other long term (current) drug therapy; Z83.3 Family history of diabetes mellitus; Z82.49 Family history of ischemic heart disease and other diseases of the circulatory system
CPT/HCPCS: 36415; 70450; 71045; 71275; 76705; 80048; 80053; 80076; 80307; 81001; 81025; 83036; 83735; 83880; 84443; 84484; 84702; 85025; 93005; 93306; 93886; 96361; 96374; 96375; G0378; J2405